=== PATIENT | female | born 1950 | race Caucasian/White ===

== ENCOUNTER 2017-02-15 03:26 | Emergency (ER) | payer SELFPAY ==
[~2017-02-15] VITALS: Ht 160 cm; Wt 63.0 kg
[~2017-02-15 03:26] MED LIST: [UNRECOGNIZED DRUG - REMARK]
[2017-02-15] MEDS ORDERED: PANTOPRAZOLE 80 MG in SODIUM CHLORIDE 0.9% 50 ML IVPB ONE (03:48)
[2017-02-15] MEDS ORDERED: SODIUM CHLORIDE 0.9% 1,000ML IVBOLUS ONE (04:00)
[2017-02-15] MEDS ORDERED: ONDANSETRON 2MG/ML, 2ML IVPush ONE (04:00)
[2017-02-15] MEDS ORDERED: ONDANSETRON 2MG/ML, 2ML ONE (04:14)
[2017-02-15 04:32] LABS: HEMOGLOBIN 13.1 g/dL (11.7-16.4)
[2017-02-15 04:40] LABS: ASPARTATE AMINO TRANSFERASE 18 U/L (15-37); BLOOD UREA NITROGEN 33 mg/dL (7-18)
[2017-02-15 04:48] LABS: IS PT STATUS REG ER OR PRE ER? YES
[2017-02-15 04:51] VITALS: BP 102/56
== END 2017-02-15 06:12 | disposition home or self-care (01) ==
LOC: ED 05:15
DX: K29.01 Acute gastritis with bleeding (principal); R11.2 Nausea with vomiting, unspecified; Z90.89 Acquired absence of other organs
CPT/HCPCS: 36415; 80053; 83690; 84484; 85025; 85610; 93005; 96365; 96366; 96375; 99285; C9113; J2405; J7030

== ENCOUNTER → 2017-09-10 | Outpatient (CLI) | payer MEDICARE ==
[2017-09-10 10:08] LABS: PATH.CAST-FLAG NOT PRESENT; SPERM-FLAG NOT PRESENT; SRC-FLAG NOT PRESENT; XTAL-FLAG NOT PRESENT; YLC-FLAG NOT PRESENT
[2017-09-10 10:14] LABS: HEMATOCRIT 46.7 % (34.6-47.8); HEMOGLOBIN 15.9 g/dL (11.7-16.4); WHITE BLOOD COUNT 9.4 x10^3/uL (3.4-10)
[2017-09-10 10:19] LABS: BLOOD UREA NITROGEN 12 mg/dL (7-18)
[2017-09-10 10:29] LABS: ASPARTATE AMINO TRANSFERASE 21 U/L (15-37)
== END | disposition home or self-care (01) ==
LOC: LAB 09:43
PROVIDERS: ATTEND Family Medicine
DX: I10 Essential (primary) hypertension (principal); K21.9 Gastro-esophageal reflux disease without esophagitis; I49.9 Cardiac arrhythmia, unspecified; J30.9 Allergic rhinitis, unspecified; M12.9 Arthropathy, unspecified; F51.01 Primary insomnia; M79.1 Myalgia; R10.84 Generalized abdominal pain; R79.9 Abnormal finding of blood chemistry, unspecified; R42 Dizziness and giddiness; R53.83 Other fatigue; Z79.891 Long term (current) use of opiate analgesic
CPT/HCPCS: 36415; 80053; 80061; 81001; 82150; 83036; 83690; 84443; 85025

== ENCOUNTER 2019-04-21 20:27 | Emergency (ER) | payer MEDICARE, OTHER ==
[~2019-04-21] VITALS: Ht 160 cm; Wt 70.0 kg
--- NOTE | 2019-04-21 20:37 | NUR ---
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 MONITORS APPLIED, SIDERAILS UP X2, CALL LIGHT WITHIN REACH
[2019-04-21] MEDS ORDERED: ASPI325T17 PO (20:40)
[2019-04-21] MEDS ORDERED: ATEN25TA PO (20:40)
[2019-04-21] MEDS ORDERED: VITAMINS (20:40)
--- NOTE | 2019-04-21 21:05 | NUR ---
PT INCONTINENT, PT CLEANED, LINENS CHANGED.
[2019-04-21 21:31] LABS: CULTURE INDICATED? YES; MICROSCOPIC INDICATED
[2019-04-21 21:47] LABS: BASOPHILS # (AUTO) 0.03 x10^3/uL (0-0.1); BASOPHILS % (AUTO) 0 % (0-1); EOSINOPHILS # (AUTO) 0.14 x10^3/uL (0-0.4); EOSINOPHILS % (AUTO) 1 % (1-7); LYMPHOCYTES % (AUTO) 16 % (22-44); MD NO; MEAN CORPUSCULAR HEMOGLOBIN 32.4 pg (27.0-34.8); MEAN CORPUSCULAR HGB CONC 32.7 g/dL (32.4-35.8); MEAN CORPUSCULAR VOLUME 99.2 fL (80-100); MEAN PLATELET VOLUME 9.2 fL (7.4-10.4); MONOCYTES # (AUTO) 0.68 x10^3/uL (0.2-0.8); MONOCYTES % (AUTO) 6 % (2-9); NEUTROPHILS % (AUTO) 76 % (42-75); PLATELET COUNT 262 x10^3/uL (130-400); RED CELL DISTRIBUTION WIDTH 13.6 % (9.6-15.2)
[2019-04-21 21:55] LABS: ALANINE AMINOTRANSFERASE 40 U/L (12-78); ALBUMIN 3.7 g/dL (3.4-5.0); ANION GAP 6 mmol/L (5-15); CALCIUM 8.9 mg/dL (8.5-10.1); CHLORIDE 112 mmol/L (98-107); CREATININE 0.82 mg/dL (0.55-1.02)
[2019-04-21 21:57] LABS: ALKALINE PHOSPHATASE 49 U/L (45-117); BILIRUBIN,TOTAL < 0.1 mg/dL (0.2-1.0); TOTAL PROTEIN 6.6 g/dL (6.4-8.2)
--- NOTE | 2019-04-21 22:03 | NUR ---
ISIS RUCKERA: [phone]
--- NOTE | 2019-04-21 22:41 | NUR ---
PT TO CT
--- NOTE | 2019-04-21 23:39 | NUR ---
PT RESTING CALMY, DENIES NEEDS, MONITORS IN PLACE, CALL LIGHT WITHIN REACH. CHART UP FOR RECHECK
--- NOTE | 2019-04-22 00:21 | NUR ---
pt ambulated with standby assist to rr, tolerated transfer without difficulty, denies feeling dizzy or nausea
[2019-04-22 00:48] VITALS: BP 134/69
--- NOTE | 2019-04-22 00:51 | NUR ---
FLOAT RN: VS STABLE. PT IS ABLE TO SAFELY AMBULATE AROUND ROOM. PT READY FOR DISCHARGE
== END 2019-04-22 01:01 | disposition home or self-care (01) ==
LOC: ED 04-22 00:55
DX: N30.00 Acute cystitis without hematuria (principal); R42 Dizziness and giddiness; R11.2 Nausea with vomiting, unspecified; I10 Essential (primary) hypertension
CPT/HCPCS: 36415; 70450; 80053; 81001; 85025; 87086; 93005; 99284

== ENCOUNTER 2019-06-22 19:12 | Emergency (ER) | payer MEDICARE, MEDICAID ==
[~2019-06-22] VITALS: Ht 160 cm; Wt 66.1 kg
[2019-06-22 20:21] VITALS: BP 119/81
== END 2019-06-22 20:29 | disposition home or self-care (01) ==
LOC: ED 20:16
DX: L03.114 Cellulitis of left upper limb (principal); I10 Essential (primary) hypertension
CPT/HCPCS: 99283

== ENCOUNTER 2019-06-28 08:43 | Emergency (ER) | payer MEDICARE, MEDICAID ==
[~2019-06-28] VITALS: Ht 160 cm; Wt 65.9 kg
[2019-06-28 08:46] VITALS: BP 148/96
== END 2019-06-28 09:42 | disposition home or self-care (01) ==
LOC: ED 09:34
DX: L24.1 Irritant contact dermatitis due to oils and greases (principal); I10 Essential (primary) hypertension; Z90.89 Acquired absence of other organs; Z86.79 Personal history of other diseases of the circulatory system
CPT/HCPCS: 99281

== ENCOUNTER 2019-10-13 15:04 | Observation (INO) | payer MEDICARE, MEDICAID ==
[~2019-10-13] VITALS: Ht 160 cm; Wt 64.4 kg
[~2019-10-13 15:04] MED LIST changes: +ASPI325T17 PO; +ATEN25TA PO; +VITAMINS
[2019-10-13] MEDS ORDERED: SODIUM CHLORIDE 0.9% 1,000 ML IV ONE (15:22)
[2019-10-13] MEDS ORDERED: ONDANSETRON 2MG/ML, 2ML IVPush ONE (15:30)
[2019-10-13] MEDS ORDERED: SODIUM CHLORIDE FLUSH 10ML SYR IVF ONE (15:30)
--- NOTE | 2019-10-13 15:30 | NUR ---
BIB EMS FOR FEELING "NUMBY AND ODD" AND DIZZINESS AND NAUSEA THIS AFTERNOON. PT STATES THAT SHE HAS A HISTORY OF VERTIGO BUT THIS FEELS DIFFERENTLY. PT STATES SHE HAD AN EPISODE WHERE SHE FELT "LIKE I WAS GOING TO " AND SAT DOWN AND MAY HAVE PASSED OUT, THEN CALLED 911.
[2019-10-13 15:48] LABS: BASOPHILS # (AUTO) 0.05 x10^3/uL (0-0.1); BASOPHILS % (AUTO) 1 % (0-1); EOSINOPHILS # (AUTO) 0.09 x10^3/uL (0-0.4); EOSINOPHILS % (AUTO) 1 % (1-7); LYMPHOCYTES # (AUTO) 1.89 x10^3/uL (1-3.4); LYMPHOCYTES % (AUTO) 23 % (22-44); MD NO; MEAN CORPUSCULAR HEMOGLOBIN 33.5 pg (27.0-34.8); MEAN CORPUSCULAR HGB CONC 33.5 g/dL (32.4-35.8); MEAN PLATELET VOLUME 8.4 fL (7.4-10.4); MONOCYTES # (AUTO) 0.49 x10^3/uL (0.2-0.8); MONOCYTES % (AUTO) 6 % (2-9); NEUTROPHILS # (AUTO) 5.75 x10^3/uL (1.8-6.8); NEUTROPHILS % (AUTO) 70 % (42-75); PLATELET COUNT 283 x10^3/uL (130-400); RED BLOOD COUNT 4.67 x10^6/uL (3.82-5.3)
[2019-10-13 15:55] LABS: INTERNATIONAL NORMALIZED RATIO 0.95 (0.93-1.1)
[2019-10-13 15:57] LABS: ALANINE AMINOTRANSFERASE 25 U/L (12-78); ALBUMIN 3.6 g/dL (3.4-5.0); ANION GAP 4 mmol/L (5-15); CHLORIDE 111 mmol/L (98-107)
[2019-10-13 16:01] LABS: ALKALINE PHOSPHATASE 71 U/L (45-117); BILIRUBIN,TOTAL 0.2 mg/dL (0.2-1.0); TOTAL PROTEIN 6.9 g/dL (6.4-8.2); TROPONIN I < 0.015 ng/mL (0.000-0.045)
[2019-10-13] MEDS ORDERED: MULT1CAP19 PO (16:11)
[2019-10-13] MEDS ORDERED: ONDANSETRON 2MG/ML, 2ML ONE (16:13)
--- NOTE | 2019-10-13 16:18 | NUR ---
IVF STARTED AND PATIENT MEDICATED PER MAR.
[2019-10-13 17:53] LABS: MICROSCOPIC NOT IND
[2019-10-13 18:00] LABS: CULTURE INDICATED? NO
--- NOTE | 2019-10-13 18:38 | NUR ---
VS UPDATED AND STABLE. PT RESTING WITH NO COMPLAINTS. PT TO BE ADMITTED TO THE HOSPITAL FOR FURTHER WORK-UP.
--- NOTE | 2019-10-13 19:30 | NUR ---
REPORT CALLED TO POLO HARTMAN FOR ROOM [id number]
[2019-10-13 20:04] VITALS: BP 169/79
[2019-10-13] MEDS ORDERED: SODIUM CHLORIDE 0.9% 1,000 ML IV SCH (21:01)
[2019-10-13] MEDS ORDERED: ATENOLOL 25 MG TABLET PO SCH (21:30)
[2019-10-13] MEDS ORDERED: ONDANSETRON 2MG/ML, 2ML IVPush PRN (21:30)
[2019-10-13] MEDS ORDERED: OXYcodone IR 5MG TABLET PO PRN (21:30)
[2019-10-13] MEDS ORDERED: ONDANSETRON ODT 4 MG PO PRN (21:30)
[2019-10-13] MEDS ORDERED: BISACODYL 10 MG SUPP PR PRN (21:30)
[2019-10-13] MEDS ORDERED: ENOXAPARIN 40 MG/0.4 ML SQ SCH (21:30)
[2019-10-13] MEDS ORDERED: DOCUSATE 100 MG CAPSULE PO PRN (21:30)
[2019-10-13] MEDS ORDERED: POLYETHYLENE GLYCOL 17 GM PACKET PO PRN (21:30)
[2019-10-13] MEDS ORDERED: ACETAMINOPHEN 325 MG TABLET PO PRN (21:30)
[2019-10-13] MEDS ORDERED: MECLIZINE 25 MG TABLET PO PRN (21:30)
[2019-10-13] MEDS ORDERED: hydrALAzine 20 MG/ML, 1ML IVPush PRN (21:30)
[2019-10-13] MEDS ORDERED: PROMETHAZINE 25 MG/ML, 1ML IM PRN (21:30)
[2019-10-13 22:13] VITALS: BP 169/79
[2019-10-13 22:46] LABS: FREE T4 (FREE THYROXINE) 0.8 ng/dL (0.76-1.46)
[2019-10-14 01:34] VITALS: BP 119/66
[2019-10-14 05:59] LABS: ALANINE AMINOTRANSFERASE 27 U/L (12-78); ANION GAP 3 mmol/L (5-15); BASOPHILS # (AUTO) 0.04 x10^3/uL (0-0.1); BASOPHILS % (AUTO) 1 % (0-1); CALCIUM 8.7 mg/dL (8.5-10.1); CHLORIDE 115 mmol/L (98-107); CHOLESTEROL, TOTAL 195 mg/dL (140-239); EOSINOPHILS # (AUTO) 0.11 x10^3/uL (0-0.4); EOSINOPHILS % (AUTO) 2 % (1-7); LYMPHOCYTES # (AUTO) 2.33 x10^3/uL (1-3.4); LYMPHOCYTES % (AUTO) 38 % (22-44); MD NO; MEAN CORPUSCULAR HEMOGLOBIN 33.5 pg (27.0-34.8); MEAN CORPUSCULAR HGB CONC 33.2 g/dL (32.4-35.8); MEAN CORPUSCULAR VOLUME 100.8 fL (80-100); MEAN PLATELET VOLUME 8.8 fL (7.4-10.4); MONOCYTES # (AUTO) 0.63 x10^3/uL (0.2-0.8); MONOCYTES % (AUTO) 10 % (2-9); NEUTROPHILS # (AUTO) 3.01 x10^3/uL (1.8-6.8); NEUTROPHILS % (AUTO) 49 % (42-75); PLATELET COUNT 247 x10^3/uL (130-400); RED BLOOD COUNT 4.18 x10^6/uL (3.82-5.3); RED CELL DISTRIBUTION WIDTH 13.1 % (9.6-15.2)
[2019-10-14 06:03] LABS: ALKALINE PHOSPHATASE 56 U/L (45-117); BILIRUBIN,TOTAL 0.6 mg/dL (0.2-1.0); CHOL/HDL RATIO 3.5; HDL CHOL % 28 % (28-40); HDL CHOLESTEROL (DIRECT) 55 mg/dL (40-60); LDL CHOLESTEROL,CALCULATED 124 mg/dL (54-169); LDL/HDL RATIO 2.3 (0.5-3.0); TOTAL PROTEIN 5.8 g/dL (6.4-8.2); TRIGLYCERIDES 80 mg/dL (50-200); VLDL CHOLESTEROL 16 mg/dL (0-25)
[2019-10-14 07:25] VITALS: BP 147/80
[2019-10-14] MEDS ORDERED: MULTIVITAMIN 1 TABLET PO SCH (09:00)
[2019-10-14] MEDS ORDERED: ASPIRIN 325 MG TABLET PO SCH (09:00)
== END 2019-10-14 15:34 | disposition home or self-care (01) ==
LOC: ED 17:20 → INTOOBSV 18:22 → EDIP 18:22 → 5SO 19:44 → DCLOUNGE 10-14 15:16
PROVIDERS: ADMIT Internal Medicine; ATTEND Internal Medicine
DX: R42 Dizziness and giddiness (principal); G90.9 Disorder of the autonomic nervous system, unspecified; M54.2 Cervicalgia; I34.1 Nonrheumatic mitral (valve) prolapse; G89.29 Other chronic pain; I10 Essential (primary) hypertension; Z88.8 Allergy status to other drugs, medicaments and biological substances; Z79.82 Long term (current) use of aspirin; Z79.899 Other long term (current) drug therapy
CPT/HCPCS: 36415; 71045; 80053; 80061; 81003; 82306; 82607; 83036; 83605; 83735; 84100; 84439; 84443; 84484; 85025; 85610; 93005; 93306; 93880; 96361; 96374; 97161; 97165; 99284; G0378; J2405; J7030

== ENCOUNTER 2021-07-02 11:10 | Emergency (ER) | payer MEDICAID, MEDICARE ==
[~2021-07-02] VITALS: Ht 160 cm; Wt 75.0 kg
[~2021-07-02 11:10] MED LIST changes: +MULT1CAP19 PO
--- NOTE | 2021-07-02 11:40 | NUR ---
PT AMBUALTED TO BATHROOM TO CLEAN UP. PT HAD BM WHEN VOMITING IN HER CAR. PT ABLE TO AMBULATE STEADILY TO BATHROOM. PT IN HOSPITAL GOWN. PT ALSO ASKED FOR URINE SAMPLE AND GIVEN CUP
--- NOTE | 2021-07-02 11:54 | NUR ---
PT NOT IN ROOM SINCE [id number]
--- NOTE | 2021-07-02 12:30 | NUR ---
PT BACK IN ROOM. PT SPENT A LONG TIME IN BATHROOM CLEANING UP FROM INCONTENT STOOL EPISODE. PT UNABLE TO GET A URINE SAMPLE. PT STATED SHE DID NOT HAVE TO VOID. ERP INFORMED THAT PT IS READY FOR PELVIC EXAM. PT STATED SHE HAD A PROLAPSED UTERUS IN MIDDLE OF MAY.
[2021-07-02 12:32] LABS: BASOPHILS % (AUTO) 0 % (0-1); EOSINOPHILS % (AUTO) 0 % (1-7); LYMPHOCYTES % (AUTO) 10 % (22-44); MEAN CORPUSCULAR HEMOGLOBIN 31.5 pg (27.0-34.8); MEAN CORPUSCULAR HGB CONC 33.2 g/dL (32.4-35.8); MEAN PLATELET VOLUME 8.8 fL (7.4-10.4); MONOCYTES % (AUTO) 6 % (2-9); NEUTROPHILS % (AUTO) 84 % (42-75); PLATELET COUNT 240 x10^3/uL (130-400); RED BLOOD COUNT 4.64 x10^6/uL (3.82-5.3); RED CELL DISTRIBUTION WIDTH 13.1 % (9.6-15.2)
[2021-07-02 12:36] LABS: ALANINE AMINOTRANSFERASE 57 U/L (12-78); ANION GAP 9 mmol/L (5-15); CALCIUM 8.4 mg/dL (8.5-10.1); CHLORIDE 113 mmol/L (98-107); CREATININE 0.85 mg/dL (0.55-1.02)
[2021-07-02 12:41] LABS: ALKALINE PHOSPHATASE 68 U/L (45-117); BILIRUBIN,TOTAL 0.3 mg/dL (0.2-1.0); TROPONIN I < 0.015 ng/mL (0.000-0.045)
--- NOTE | 2021-07-02 12:42 | NUR ---
CT DELAY; TRIED TO GET TWICE-PT IN THE BATHROOM BOTH TIMES
--- NOTE | 2021-07-02 13:00 | NUR ---
PT REFUSING CT DUE TO HER CLAUSTRAPHOBIA. WILL INFORM ERP
--- NOTE | 2021-07-02 13:27 | NUR ---
PT STRAIGHT CATHED FOR URINE. TOLERATED WELL. SAMPLE COLLECTED & WALKED TO LAB. PT DENIES ANY NEEDS.
[2021-07-02 14:25] LABS: MICROSCOPIC INDICATED
[2021-07-02] MEDS ORDERED: CEFTRIAXONE 1,000 MG in DEXTROSE 5% 50 ML IVPB ONE (15:00)
[2021-07-02] MEDS ORDERED: AZITHROMYCIN 500 MG in SODIUM CHLORIDE 0.9% 250 ML IV ONE (15:00)
--- NOTE | 2021-07-02 15:40 | NUR ---
ORDERED ABX STARTED PER EMAR. BLOOD CULTURES DONE
--- NOTE | 2021-07-02 16:50 | NUR ---
PT WAS TO BE ADMITTED TO HOSPITAL. PT NOT WANTING TO BE ADMITTED. PT ASKING HOSPTIALIST TO BE DCd.
--- NOTE | 2021-07-02 17:10 | NUR ---
PT ASKING FOR IV TO BE REMOVED. PT STATED IT'S HURTING. PT AWARE ABX IS NOT FINISHED. NO OBVIOUS SIGNS OF INFULTRATION ON IV, IV FLUSHES WELL. PT STATED IT'S JUST HURTING TOO MUCH AND WANTS IT REMOVED. IV REMOVED. PT STATED SHE IS GOING HOME. AWAITING DC PAPERS.
[2021-07-02 17:36] VITALS: BP 117/65
== END 2021-07-02 18:09 ==
LOC: ED 12:25 → UNDOADMIN 16:26 → EDIP 16:26 → ED 18:03
DX: R55 Syncope and collapse (principal); R53.1 Weakness; J18.9 Pneumonia, unspecified organism; I10 Essential (primary) hypertension
CPT/HCPCS: 36415; 70450; 71045; 80053; 81001; 83605; 84484; 85025; 87040; 93005; 96365; 96367; 99285; J0456; J0696; J7050